=== PATIENT | female | born 1990 | race Caucasian/White ===

== ENCOUNTER 2017-03-31 11:20 | Emergency (ER) | payer MEDICAID, OTHER ==
[~2017-03-31] VITALS: Ht 149.9 cm; Wt 44.5 kg
[~2017-03-31 11:20] MED LIST: AMOX500C25 PO; IBUP-974 PO
[2017-03-31 11:32] VITALS: BP 97/61
--- NOTE | 2017-03-31 13:15 | NUR ---
Patient ambulated to bed 3. RN evaluating patient at bedside.
--- NOTE | 2017-03-31 13:17 | NUR ---
Dr. Leavitt evaluating patient at bedside.
--- NOTE | 2017-03-31 13:21 | NUR ---
Patient being evaluated by physician at bedside.
--- NOTE | 2017-03-31 13:28 | NUR ---
Patient taken to x-ray via w/c.
--- NOTE | 2017-03-31 13:40 | NUR ---
PT PRESENTS TO ER W/C/O ABDOMINAL PAIN SINCE THIS AM. PT DENIES ANY MEDICAL HX; PT DENIES N/V/D; SKIN IS PINK/WARM/DRY; AAOX4 WITH EVEN AND STEADY GAIT; LUNGS CLEAR BL; HR EVEN AND REGULAR; PT DENIES ANY FEVER, CP, SOB, OR COUGH AT THIS TIME; PATIENT STATES PAIN OF 9/10 AT THIS TIME; VSS; PATIENT POSITIONED FOR COMFORT; HOB ELEVATED; BEDRAILS UP X2; BED DOWN. ER MD MADE AWARE OF PT STATUS.
[2017-03-31 14:01] VITALS: BP 127/79
== END 2017-03-31 14:01 | disposition home or self-care (01) ==
LOC: MED 11:20
DX: R10.9 Unspecified abdominal pain (principal)
CPT/HCPCS: 74022; 81025; 99283

== ENCOUNTER 2019-12-16 08:26 | Emergency (ER) | payer OTHER ==
[~2019-12-16] VITALS: Ht 149.9 cm; Wt 42.6 kg
[2019-12-16 08:34] VITALS: BP 109/68
--- NOTE | 2019-12-16 08:39 | NUR ---
AMB TO BED 07 STEADY GAIT
--- NOTE | 2019-12-16 08:40 | NUR ---
29Y/F PRESENTS TO ED WITH "UTI SX" X 2 MONTHS, PT COMPLAINS OF CLOUDY URINE, BURNING, FREQUENCY, FOUL ODOR, LOW BACK PAIN 8/10, C/O NAUSEA, DENIES V/D. DENIES VAGINAL DISCHARGE OR ABDOMINAL PAIN. LUNGS CLEAR THROUGHOUT. HX- DENIES RX- DENIES ALLERGIES- AMOXICILLIN
--- NOTE | 2019-12-16 09:34 | NUR ---
Patient discharged with v/s stable. Written and verbal after care instructions given and explained. Patient alert, oriented and verbalized understanding of instructions. Ambulatory with steady gait. All questions addressed prior to discharge. ID band removed. Patient advised to follow up with PMD. Rx of MOTRIN AND CIPRO given. Patient educated on indication of medication including possible reaction and side effects. Opportunity to ask questions provided and answered.
[2019-12-16 09:41] VITALS: BP 109/68
== END 2019-12-16 09:34 | disposition home or self-care (01) ==
LOC: MED 08:26
DX: N39.0 Urinary tract infection, site not specified (principal); Z79.899 Other long term (current) drug therapy
CPT/HCPCS: 81002; 81025; 99283

== ENCOUNTER 2022-12-11 07:58 | Emergency (ER) | payer OTHER ==
[~2022-12-11] VITALS: Ht 154.9 cm; Wt 52.2 kg
[2022-12-11 08:01] VITALS: BP 109/65
--- NOTE | 2022-12-11 08:09 | NUR ---
32 Y/O FEMALE BIB SELF C/O LEFT EYE SWELLING X2 WEEKS. PER PT SWELLING RESOLVED 1 WEEK AGO AND RETURNED AFTER USING NEW [place]. DENIES ANY BLURRING OF VISION, PHYSICAL OR CHEMICAL IRRITATION TO THE AREA. DENIES ANY FEVERS, CHILLS. NO RASH OR REDNESS NOTED EXTENDING OUTSIDE OF THE LID NKA PMH: DENIES
[2022-12-11] MEDS ORDERED: CLIN300C73 PO (08:55)
[2022-12-11] MEDS ORDERED: IBUP-2213 PO (08:55)
--- NOTE | 2022-12-11 09:08 | NUR ---
Patient discharged with v/s stable. Written and verbal after care instructions ABOUT BLEPHARITIS given and explained. Patient alert, oriented and verbalized understanding of instructions. Ambulatory with steady gait. All questions addressed prior to discharge. ID band removed. Patient advised to follow up with PMD. Rx of CLINDAMYCIN, MOTRIN given. Patient educated on indication of medication including possible reaction and side effects. Opportunity to ask questions provided and answered.
== END 2022-12-11 09:08 | disposition home or self-care (01) ==
LOC: MED 07:58
DX: H01.004 Unspecified blepharitis left upper eyelid (principal)
CPT/HCPCS: 99283

== ENCOUNTER 2023-08-20 08:02 | Emergency (ER) | payer OTHER ==
[~2023-08-20] VITALS: Ht 149.9 cm; Wt 49.4 kg
[~2023-08-20 08:02] MED LIST changes: +CLIN300C73 PO; +IBUP-2213 PO
[2023-08-20 08:12] VITALS: BP 94/57; PULSE 73; RESP 16; TEMP 97.4
[2023-08-20] MEDS ORDERED: FLUORESCEIN OPTH STRIP 1 MG OP ONE (08:20)
[2023-08-20] MEDS ORDERED: ERYT5OIN58 RIGHT EYE (08:36)
[2023-08-20] MEDS ORDERED: LORA10TA19 PO (08:36)
[2023-08-20 08:50] VITALS: BP 94/57; PULSE 73; RESP 16; TEMP 97.4
== END 2023-08-20 08:48 | disposition home or self-care (01) ==
LOC: MED 08:02
DX: B30.9 Viral conjunctivitis, unspecified (principal); H57.11 Ocular pain, right eye; Z79.899 Other long term (current) drug therapy
CPT/HCPCS: 99283